=== PATIENT | male | born 1960 | race Caucasian/White ===

== ENCOUNTER → 2017-10-09 | Outpatient (CLI) | payer OTHER ==
--- NOTE | 2017-10-10 14:39 | US ---
EXAMINATION TYPE: US kidneys/renal and bladder DATE OF EXAM: 10/09/2017 COMPARISON: CT CLINICAL HISTORY: R94.4 abnormal results of function study of kidney. EXAM MEASUREMENTS: Right Kidney: 9.3 x 4.1 x 4.4 cm Left Kidney: 9.8 x 5.6 x 4.7 cm Right Kidney: No hydronephrosis or nephrolithiasis Left Kidney: No hydronephrosis or nephrolithiasis, inferior pole obscured by bowel gas Bladder: wnl Bilateral Jets seen: Yes There is no evidence for hydronephrosis at this point in time. No nephrolithiasis is seen. No kristin s are identified. The urinary bladder is anechoic. Bilateral ureteral jets are seen. Cortical medul terra differentiation is maintained. No cortical renal thinning. IMPRESSION: No evidence of hydronephrosis or nephrolithiasis although the left inferior pole is slightly limited by obscuring bowel gas. No sonographic evidence of medical renal disease.
== END | disposition home or self-care (01) ==
LOC: RADUSWWP 10-02 07:35
PROVIDERS: ATTEND Internal Medicine
DX: R94.4 Abnormal results of kidney function studies (principal)
CPT/HCPCS: 76770

== ENCOUNTER → 2021-02-22 | Outpatient (CLI) | payer OTHER ==
--- NOTE | 2021-02-22 17:48 | CT ---
EXAMINATION TYPE: CT iac wo con DATE OF EXAM: 02/22/2021 COMPARISON: CT brain 12/30/2012 HISTORY: Bilateral ear pain. Worse on the right. CT DLP: 150 mGycm Automated exposure control for dose reduction was used. Contrast: None Technique: Axial images 1 mm thick sections through the petrous ridges. Reconstructed images in the c oronal plane are obtained. FINDINGS: There is mild mucosal thickening within the left maxillary sinus. Sphenoid and ethmoid and portions o f the frontal sinuses within the field of view are clear. Left septal deviation is noted. Mastoid air cells are clear. Internal auditory canals appear normal without expansion or erosion. Semicircular canals are normal. Cochlea are normal. Foramen Lacerum extending through the middle ears bilaterally. Middle ears are ot herwise clear. Incus and malleus in normal orientation bilaterally. External auditory canals appear n ormal. Scutum are normal. Temporomandibular junctions appear within normal limits. Orbits appear normal. Lacrimal gland regions appear normal. Extraocular muscles are normal. Intraconal and extraconal fat is normal. IMPRESSION: 1. NORMAL BILATERAL INTERNAL AUDITORY CANALS.
== END | disposition home or self-care (01) ==
LOC: RADCTMAIN 13:48
PROVIDERS: ATTEND Otolaryngology
DX: H92.03 Otalgia, bilateral (principal)
CPT/HCPCS: 70480

== ENCOUNTER → 2021-07-25 | Outpatient (CLI) | payer OTHER ==
--- NOTE | 2021-07-25 13:02 | XR ---
EXAMINATION TYPE: XR elbow complete LT DATE OF EXAM: 07/25/2021 COMPARISON: 06/01/2013 HISTORY: Left elbow pain TECHNIQUE: 3 view left elbow FINDINGS: Radius aligns normally with the humerus. Anterior fat pad is normal. No elevation of the po sterior fat pad is evident which is normal. Joint spaces are preserved. Soft tissues are normal. No a cute fracture or dislocation is evident. IMPRESSION: 1. Normal three-view left elbow
--- NOTE | 2021-07-25 13:04 | XR ---
EXAMINATION TYPE: XR Hip Complete LT DATE OF EXAM: 07/25/2021 COMPARISON: None HISTORY: Pain TECHNIQUE: 2 view left hip FINDINGS: Femoral head articulates with the acetabulum. No acute fracture or dislocation is evident. Joint space appears preserved. IMPRESSION: 1. No acute osseous abnormality left hip
== END | disposition home or self-care (01) ==
LOC: RADXRMAIN 12:04
PROVIDERS: ATTEND Internal Medicine
DX: M25.522 Pain in left elbow (principal); M25.552 Pain in left hip
CPT/HCPCS: 73502

== ENCOUNTER 2021-07-29 10:35 | Emergency (ER) | payer OTHER ==
[2021-07-29 10:43] VITALS: BP 146/85; PULSE 68; RESP 20; TEMP 98.3
--- NOTE | 2021-07-29 10:59 | ED ---
Lower Extremity Injury HPI - General Chief Complaint: Extremity Injury, Lower Stated Complaint: L Hip Pain Time Seen by Provider: 07/29/21 10:44 Source: patient Limitations: no limitations - History of Present Illness Initial Comments: 61-year-old male presents to emergency Department with a chief complaint of left hip pain. Patient states he has developed pain in the left hip about 10 days ago. Patient reports feeling a sore sensation with radiation along the lateral aspect to the tibial region. He denies any paresthesias to the rest the leg. Reports going to his primary care physician and obtain an x-ray which showed no acute findings of the left hip. States he was on Flexeril with mild improvement in his symptoms. States he is also been taking ibuprofen which helped alleviate some of discomfort. Denies any weakness in the leg. Denies any back pain. Denies any saddle anesthesia, urinary retention with overflow or bowel incontinence. Denies any trauma to the left hip. - Related Data Home Medications Medication Instructions Recorded Confirmed ARIPiprazole [Abilify] 5 mg PO DAILY 07/07/15 10/02/15 HYDROcodone/APAP 7.5-325MG [[place] 1 each PO Q6HR PRN 07/07/15 10/02/15 7.5-325] ALPRAZolam [Xanax] 0.25 mg PO HS PRN 10/02/15 10/02/15 Cyclobenzaprine [Flexeril] 10 mg PO BID 10/02/15 10/02/15 Previous Rx's Medication Instructions Recorded HYDROmorphone [Dilaudid] 2 mg PO Q8H PRN #30 tab 10/02/15 Allergies Allergy/AdvReac Type Severity Reaction Status Date / Time No Known Allergies Allergy Verified 07/29/21 10:43 Review of Systems ROS Statement: Those systems with pertinent positive or pertinent negative responses have been documented in the HPI. ROS Other: All systems not noted in ROS Statement are negative. Past Medical History Past Medical History: No Reported History History of Any Multi-Drug Resistant Organisms: None Reported Past Surgical History: Appendectomy Past Psychological History: No Psychological Hx Reported Smoking Status: Never smoker Past Alcohol Use History: Occasional Past Drug Use History: None Reported General Exam Limitations: no limitations General appearance: alert, in no apparent distress Head exam: Present: atraumatic, normocephalic, normal inspection Eye exam: Present: normal appearance Pupils: Present: normal accommodation ENT exam: Present: normal exam, normal oropharynx, mucous membranes moist Neck exam: Present: normal inspection, full ROM. Absent: tenderness, lymphadenopathy Respiratory exam: Present: normal lung sounds bilaterally. Absent: respiratory distress Cardiovascular Exam: Present: regular rate, normal rhythm, normal heart sounds. Absent: systolic murmur Extremities exam: Present: normal inspection, full ROM, tenderness (Tenderness over the left hip and lateral aspect of the left thigh), normal capillary refill, other (Palpable DP and PT bilaterally). Absent: pedal edema, joint swelling, calf tenderness Back exam: Present: normal inspection, full ROM. Absent: tenderness Neurological exam: Present: alert, oriented X3 Psychiatric exam: Present: normal affect, normal mood Skin exam: Present: warm, dry, intact, normal color Course Vital Signs 07/29/21 10:41 Temperature 98.3 F Pulse Rate 68 Respiratory 20 Rate Blood Pressure 146/85 O2 Sat by Pulse 99 Oximetry Medical Decision Making - Medical Decision Making 61-year-old male presents to emergency Department with a chief complaint of left hip pain. Physical examination is unremarkable. I will start patient on a short course of steroids. I advised him to follow-up with diversity specialist. Return parameters were discussed with patient at some standing agreeable. Disposition Clinical Impression: Hip bursitis, left Disposition: HOME SELF-CARE Condition: Stable Instructions (If sedation given, give patient instructions): Hip Bursitis (ED) Additional Instructions: Please return to the Emergency Department if symptoms worsen or any other concerns. Is patient prescribed a controlled substance at d/c from ED?: No Referrals: Josiah Mckeon MD [Primary Care Provider] - 1-2 days Leonard Newman MD [Medical Doctor] - 1-2 days Time of Disposition: 10:59
== END 2021-07-29 11:20 | disposition home or self-care (01) ==
LOC: EC 10:35
DX: M70.72 Other bursitis of hip, left hip (principal)
CPT/HCPCS: 99283

== ENCOUNTER 2021-10-01 11:52 | Emergency (ER) | payer OTHER ==
[2021-10-01 12:20] VITALS: BP 145/83; PULSE 58; RESP 16; TEMP 98.9
[2021-10-01 12:44] LABS: Basophils % (A) 1 %; Eosinophils % (A) 1 %; HCT 43.6 % (39.0-53.0); HGB 15.2 gm/dL (13.0-17.5); Lymphocytes # (A) 0.6 k/uL (1.0-4.8); Lymphocytes % (A) 17 %; MCH 31.8 pg (25.0-35.0); MCHC 34.8 g/dL (31.0-37.0); MCV 91.5 fL (80.0-100.0); Mean Platelet Volume 7.5; Monocytes # (A) 0.2 k/uL (0-1.0); Monocytes % (A) 5 %; Neutrophils # (A) 2.8 k/uL (1.3-7.7); Neutrophils % (A) 76 %; RBC 4.77 m/uL (4.30-5.90); RDW 12.3 % (11.5-15.5); WBC 3.7 k/uL (3.8-10.6)
[2021-10-01 12:57] LABS: African American GFR (CKD) >90 (>60 ml/min/1.73 sqM); Anion Gap 7 mmol/L; Blood Urea Nitrogen 16 mg/dL (9-20); Calcium 8.5 mg/dL (8.4-10.2); Carbon Dioxide 24 mmol/L (22-30); Chloride 104 mmol/L (98-107); Glucose 118 mg/dL (74-99); Non-African American GFR(CKD) >90 (>60 ml/min/1.73 sqM); Potassium 4.1 mmol/L (3.5-5.1); Sodium 135 mmol/L (137-145)
--- NOTE | 2021-10-01 13:44 | XR ---
EXAMINATION TYPE: XR chest 2V DATE OF EXAM: 10/01/2021 COMPARISON: Chest x-ray July 07, 2015 HISTORY: Shortness of breath. Worsening cough and congestion. COVID positive. TECHNIQUE: Frontal and lateral views of the chest are obtained. FINDINGS: There are faint bilateral multifocal peripheral opacities with additional right basilar op acity. Cardiac silhouette size stable and within normal limits. Underlying scoliotic curvature redemo nstrated. IMPRESSION: Faint bilateral predominant peripheral lower lung opacities consistent with known covid- 19 infection.
[2021-10-01 14:50] LABS: Platelet Count 97 k/uL (150-450)
[2021-10-01] MEDS ORDERED: BAMLANIVIMAB (EUA) 700 MG, ETESEVIMAB (EUA) 1,400 MG in SODIUM CHLORIDE 0.9% 50 ML IVPB ONE (15:30)
[2021-10-01] MEDS ORDERED: SODIUM CHLORIDE 0.9% 50 ML IVPB ONE (16:00)
--- NOTE | 2021-10-01 16:21 | ED ---
URI HPI - General Chief Complaint: Upper Respiratory Infection Stated Complaint: covid+, chest pain Time Seen by Provider: 10/01/21 14:44 Source: patient, RN notes reviewed Mode of arrival: ambulatory Limitations: no limitations - History of Present Illness Initial Comments: Patient is a healthy 61-year-old male presenting to the emergency department wo rsening Covid symptoms. Patient states he started having symptoms on September 25, 6 days ago, he tested positive for 2 days ago. He's been reporting a worsening cough, congestion and some intermittent chest tightness when he coughs. He states he is still been able to eat his normal diet, consume lots of fluids. He denies any nausea or vomiting, no abdominal pain. He denies any chest pain today. He denies any shortness of breath. He denies any fevers or chills. He has no further complaints at this time. Upon arrival to the ER, his vital signs are stable. - Related Data Home Medications Medication Instructions Recorded Confirmed ARIPiprazole [Abilify] 5 mg PO DAILY 07/07/15 10/02/15 HYDROcodone/APAP 7.5-325MG [[place] 1 each PO Q6HR PRN 07/07/15 10/02/15 7.5-325] ALPRAZolam [Xanax] 0.25 mg PO HS PRN 10/02/15 10/02/15 Cyclobenzaprine [Flexeril] 10 mg PO BID 10/02/15 10/02/15 Previous Rx's Medication Instructions Recorded HYDROmorphone [Dilaudid] 2 mg PO Q8H PRN #30 tab 10/02/15 predniSONE 50 mg PO DAILY #5 tab 07/29/21 Albuterol Inhaler [Ventolin Hfa 1 puff INHALATION RT-QID PRN #8 gm 10/01/21 Inhaler] Dexamethasone [Decadron] 6 mg PO DAILY 5 Days #5 tablet 10/01/21 Allergies Allergy/AdvReac Type Severity Reaction Status Date / Time No Known Allergies Allergy Verified 07/29/21 10:43 Review of Systems ROS Statement: Those systems with pertinent positive or pertinent negative responses have been documented in the HPI. ROS Other: All systems not noted in ROS Statement are negative. Past Medical History Past Medical History: No Reported History History of Any Multi-Drug Resistant Organisms: None Reported Past Surgical History: Appendectomy Past Psychological History: No Psychological Hx Reported Smoking Status: Never smoker Past Alcohol Use History: Occasional Past Drug Use History: None Reported General Exam - General Exam Comments Initial Comments: GENERAL: Patient is well-developed and well-nourished. Patient is nontoxic and in no acute distress. HEAD: Atraumatic, normocephalic. EYES: Pupils equal round and reactive to light, extraocular movements intact, sclera anicteric, conjunctiva are normal. Eyelids were unremarkable. ENT: Moist mucous membranes. NECK: Normal range of motion, supple without lymphadenopathy or JVD. LUNGS: Unlabored respirations. Breath sounds clear to auscultation bilaterally and equal. No wheezes rales or rhonchi. HEART: Regular rate and rhythm without murmurs, rubs or gallops. ABDOMEN: Soft, nontender, normoactive bowel sounds. No guarding, no rebound. No masses appreciated. MUSCULOSKELETAL: Normal extremities with adequate strength and normal range of motion, no pitting or edema. No clubbing or cyanosis. NEUROLOGICAL: Patient is alert and oriented x 3. SKIN: Warm, Dry, normal turgor, no rashes or lesions noted. Limitations: no limitations Course Vital Signs 10/01/21 12:17 Temperature 98.9 F Pulse Rate 58 L Respiratory 16 Rate Blood Pressure 145/83 O2 Sat by Pulse 96 Oximetry Medical Decision Making - Medical Decision Making Patient is a healthy 61-year-old male referred worsening Covid symptoms. He tested of 2 days ago, symptoms began 6 days ago. Has been having cough, congestion. His vital signs are stable today. EEG revealed no acute process. His lab work is unremarkable including a low d-dimer and normal troponin. Chest x-ray shows faint of bilateral peripheral lower lung opacities consistent with covid infection. Patient's exam is unremarkable. He does qualify for monoclonal antibodies, he did agree to this today. Patient received these without any adverse side effects. We'll give him a short course of steroids, and inhaler. He is agreeable to this plan and care and he is stable for discharge. Case discussed with Dr. Ruvalcaba. - Lab Data Result diagrams: 10/01/21 12:27 10/01/21 12:27 Lab Results 10/01/21 10/01/21 10/01/21 Range/Units 12:27 12: 12:27 WBC 3.7 L (3.8-10.6) k/uL RBC 4.77 (4.30-5.90) m/uL Hgb 15.2 (13.0-17.5) gm/dL Hct 43.6 (39.0-53.0) % MCV 91.5 (80.0-100.0) fL MCH 31.8 (25.0-35.0) pg MCHC 34.8 (31.0-37.0) g/dL RDW 12.3 (11.5-15.5) % Plt Count 97 L (150-450) k/uL MPV 7.5 Neutrophils % 76 % Lymphocytes % 17 % Monocytes % 5 % Eosinophils % 1 % Basophils % 1 % Neutrophils # 2.8 (1.3-7.7) k/uL Lymphocytes # 0.6 L (1.0-4.8) k/uL Monocytes # 0.2 (0-1.0) k/uL Eosinophils # 0.0 (0-0.7) k/uL Basophils # 0.0 (0-0.2) k/uL Manual Slide Review Performed RBC Morphology Normal D-Dimer 0.36 (<0.60) mg/L FEU Sodium 135 L (137-145) mmol/L Potassium 4.1 (3.5-5.1) mmol/L Chloride 104 (98-107) mmol/L Carbon Dioxide 24 (22-30) mmol/L Anion Gap 7 mmol/L BUN 16 (9-20) mg/dL Creatinine 0.83 (0.66-1.25) mg/dL Est GFR (CKD-EPI)AfAm >90 (>60 ml/min/1.73 sqM) Est GFR (CKD-EPI)NonAf >90 (>60 ml/min/1.73 sqM) Glucose 118 H (74-99) mg/dL Calcium 8.5 (8.4-10.2) mg/dL Troponin I (0.000-0.034) ng/mL 10/01/21 Range/Units 12:27 WBC (3.8-10.6) k/uL RBC (4.30-5.90) m/uL Hgb (13.0-17.5) gm/dL Hct (39.0-53.0) % MCV (80.0-100.0) fL MCH (25.0-35.0) pg MCHC (31.0-37.0) g/dL RDW (11.5-15.5) % Plt Count (150-450) k/uL MPV Neutrophils % % Lymphocytes % % Monocytes % % Eosinophils % % Basophils % % Neutrophils # (1.3-7.7) k/uL Lymphocytes # (1.0-4.8) k/uL Monocytes # (0-1.0) k/uL Eosinophils # (0-0.7) k/uL Basophils # (0-0.2) k/uL Manual Slide Review RBC Morphology D-Dimer (<0.60) mg/L FEU Sodium (137-145) mmol/L Potassium (3.5-5.1) mmol/L Chloride (98-107) mmol/L Carbon Dioxide (22-30) mmol/L Anion Gap mmol/L BUN (9-20) mg/dL Creatinine (0.66-1.25) mg/dL Est GFR (CKD-EPI)AfAm (>60 ml/min/1.73 sqM) Est GFR (CKD-EPI)NonAf (>60 ml/min/1.73 sqM) Glucose (74-99) mg/dL Calcium (8.4-10.2) mg/dL Troponin I <0.012 (0.000-0.034) ng/mL - EKG Data EKG Comments: Sinus bradycardia, left posterior fascicular block, no signs of acute ST segment elevation. Ventricular rate 57, MA interval 162, QT 400. Disposition Clinical Impression: COVID-19 Disposition: HOME SELF-CARE Condition: Stable Instructions (If sedation given, give patient instructions): Coronavirus Disease 2019 (COVID-19) Additional Instructions: Please return to the Emergency Department if symptoms worsen or any other concerns. Inhaler as needed for any shortness of breath. Take steroids as prescribed. Follow up with your primary care as needed. Prescriptions: Dexamethasone [Decadron] 6 mg PO DAILY 5 Days #5 tablet Albuterol Inhaler [Ventolin Hfa Inhaler] 1 puff INHALATION RT-QID PRN #8 gm PRN Reason: Shortness Of Breath Is patient prescribed a controlled substance at d/c from ED?: No Referrals: Josiah Mckeon MD [Primary Care Provider] - 1-2 days Time of Disposition: 17:02
== END 2021-10-01 17:19 | disposition home or self-care (01) ==
LOC: EC 11:52
DX: U07.1 COVID-19 (principal)
CPT/HCPCS: 99285 ×2; 36415; 93005; 85379; 80048; 84484; 85025; 71046; M0243; J3490

== ENCOUNTER → 2022-08-29 | Outpatient (CLI) | payer OTHER ==
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
== END | disposition home or self-care (01) ==
LOC: RADMRIMAIN 18:50
PROVIDERS: ATTEND Internal Medicine
DX: S83.221D Peripheral tear of medial meniscus, current injury, right knee, subsequent encounter (principal); X58.XXXD Exposure to other specified factors, subsequent encounter

== ENCOUNTER → 2023-02-23 | Outpatient (CLI) | payer OTHER ==
--- NOTE | 2023-02-23 09:57 | P.PAINCN ---
History of Present Illness - Reason for Consult Consult date: 02/23/23 - History of Present Illness This is initial consultation visit for this 62 years old male with a chronic history of severe low back pain, more than 20 years ago, patient reported that the intensity of the pain increased over the years and currently is constant and increases with any activity interference with the quality of life, he denies any initiating event, he reported the pain is mostly in the low back area with oc casional radiation to the lower extremity, but most of the pain is in the low back area, he tried pain medication [place] and Tylenol and he tried lidocaine patches he did ice and heat therapy and has done physical therapy and chiropractors without any long-term benefit, denies any fever or night sweats she denies any motor or sensory deficit he denies any change in the bowel movement or urination Past Medical History Past Medical History: No Reported History History of Any Multi-Drug Resistant Organisms: None Reported Past Surgical History: Appendectomy Past Psychological History: No Psychological Hx Reported Smoking Status: Never smoker Past Alcohol Use History: Occasional Past Drug Use History: None Reported Medications and Allergies Home Medications Medication Instructions Recorded Confirmed Type ARIPiprazole [Abilify] 5 mg PO DAILY 07/07/15 10/02/15 History HYDROcodone/APAP 7.5-325MG [[place] 1 each PO Q6HR PRN 07/07/15 10/02/15 History 7.5-325] ALPRAZolam [Xanax] 0.25 mg PO HS PRN 10/02/15 10/02/15 History Cyclobenzaprine [Flexeril] 10 mg PO BID 10/02/15 10/02/15 History HYDROmorphone [Dilaudid] 2 mg PO Q8H PRN #30 tab 10/02/15 Rx predniSONE 50 mg PO DAILY #5 tab 07/29/21 Rx Albuterol Inhaler [Ventolin Hfa 1 puff INHALATION RT-QID PRN #8 gm 10/01/21 Rx Inhaler] dexAMETHasone [Decadron] 6 mg PO DAILY 5 Days #5 tablet 10/01/21 Rx Allergies Allergy/AdvReac Type Severity Reaction Status Date / Time No Known Allergies Allergy Verified 07/29/21 10:43 Physical Exam Vitals: Intake and Output 04/02/23 04/03/23 04/03/23 22:59 06:59 14:59 Other: Weight 69.4 kg Physical Examinations : -Constitutiona : Cooperative , not in acute distress . -HEENT : nech : supple , no Lymphadenopathy , normal thyroid size . : eyes : no ptosis , no icterus, no photophobia . - neurologic : Cranial nerve II to XII intact , no focal neurological deffecit . -psychatric : alert , oriented X 3 , appropriate affect , intact judgment and insight . -Lymphatic : no Lymphadenopathy . - musculoskeltal : Lumber spine moter stegnth lower extremities ,thigh and legs 5/5 Right side , 5/5 Left side deep tendon reflexes : normal Knee Jerk , normal ankle Jerk lumber facet Loading Test =positive Right , positive Left Range of motion of the lumbar spine Flexion 30 degrees, extension 10 degrees strait leg raising test = positive at 60 degree Fabere test= positive Right , and positive LT . tenderness over the Sacroiliac joint on the Right , and Left sides Assessment and Plan Plan: Assessment and plan= chronic low back pain secondary to lumbar degenerative disc disease , lumbar spondylosis with lumbar facet arthropathy . She had no diagnostic study done. We will order MRI of the lumbar spine to confirm the diagnosis. She'll follow up in the pain clinic in 2 weeks after the MRI report After we get the MRI results patient mostly needed diagnostic medial branch block lumbar area at L4 5 and L5-S1 I have spent 35 minutes on patient care today. The time was used to review the medical records including relevant urine studies and Prescription history (MAPs), review of the available imaging, evaluation and examination of the patient, coordination of care with the medical staff and if applicable referring physicians, as well as creation of the medical record. . , Time with Patient: Greater than 30 PQRS Measure Charge Sheet PQRS Narrative: Smoking Status Never smoker Home Medications: Ambulatory Orders ARIPiprazole [Abilify] 5 mg PO DAILY 07/07/15 HYDROcodone/APAP 7.5-325MG [[place] 7.5-325] 1 each PO Q6HR PRN 07/07/15 ALPRAZolam [Xanax] 0.25 mg PO HS PRN 10/02/15 Cyclobenzaprine [Flexeril] 10 mg PO BID 10/02/15 HYDROmorphone [Dilaudid] 2 mg PO Q8H PRN #30 tab 10/02/15 predniSONE 50 mg PO DAILY #5 tab 07/29/21 Albuterol Inhaler [Ventolin Hfa Inhaler] 1 puff INHALATION RT-QID PRN #8 gm 10/01/21 dexAMETHasone [Decadron] 6 mg PO DAILY 5 Days #5 tablet 10/01/21
[2023-02-23 10:13] VITALS: BP 146/86; PULSE 58; RESP 18; TEMP 98.4
== END ==
LOC: PNWHC3 09:15
PROVIDERS: ATTEND Specialist
DX: M51.36 Other intervertebral disc degeneration, lumbar region (principal); M47.816 Spondylosis without myelopathy or radiculopathy, lumbar region; G89.29 Other chronic pain; M25.552 Pain in left hip
CPT/HCPCS: 99211

== ENCOUNTER → 2023-02-23 | Outpatient (CLI) | payer OTHER ==
--- NOTE | 2023-02-23 12:07 | XR ---
EXAMINATION TYPE: XR lumbar spine 2 or 3V DATE OF EXAM: 02/23/2023 COMPARISON: None HISTORY: Spondylosis with radiculopathy lumbar region TECHNIQUE: 3 view lumbar spine FINDINGS: There is a scoliosis present with the convexity to the right centered at L2. There are 5 jose mbar-type vertebral bodies. The pedicles are intact. There is loss of disc height through the lumbar spine. This is greatest at L5-S1 with vacuum disc phenomenon. Posterior disc space narrowing is prese nt at L3-4. Diffuse disc space narrowing is at the remaining lumbar disc levels. Vertebral body heigh ts are preserved. No spondylolisthesis is evident. MRI can be performed as clinically indicated. IMPRESSION: 1. Degenerative disc changes throughout the lumbar spine. 2. Scoliosis
== END | disposition home or self-care (01) ==
LOC: RADXRMAIN 10:06
PROVIDERS: ATTEND Specialist
DX: M51.16 Intervertebral disc disorders with radiculopathy, lumbar region (principal); M47.26 Other spondylosis with radiculopathy, lumbar region; M41.86 Other forms of scoliosis, lumbar region
CPT/HCPCS: 72100

== ENCOUNTER → 2023-03-07 | Outpatient (CLI) | payer OTHER ==
--- NOTE | 2023-03-08 10:21 | MR ---
EXAMINATION TYPE: MR lumbar spine wo con DATE OF EXAM: 03/07/2023 11:54 AM COMPARISON: None CLINICAL INDICATION:Male, 62 years old with history of M47.816 SPONDYLOSIS W/O MYELOPATHY OR RADICULO PATH; Low back pain into sy[place] lower extremities TECHNIQUE: Multi planar, multi sequence imaging was performed utilizing: T1-weighted, T2-weighted, a nd turbo inversion recovery imaging of the lumbar spine. IV Contrast: None. FINDINGS: Alignment: The lumbar vertebral bodies have preserved heights and alignment. Cord: The conus medullaris and the distal spinal cord appear unremarkable with regards to their signa l intensity and morphology. Bones/Discs: Multilevel disc degeneration changes with osteophytes, Schmorl's nodes, disc space narro wing and facet joint arthropathy. Scattered bony edema along the adjoining endplates where there is c omplete loss of disc height. Disc desiccation is present multiple levels. Scattered Modic endplate ch anges. Lower thoracic spine does demonstrate disc bulging without significant spinal canal neural foraminal stenosis. T12-L1: No evidence of significant spinal canal stenosis or neural foraminal stenosis. L1-L2: Disc bulge and facet joint arthropathy result in and mild to moderate spinal canal and moderat e to severe bilateral neural foraminal stenosis. L2-L3: Disc bulge and facet joint arthropathy result in and mild to moderate spinal canal and moderat e right and moderate to severe left neural foraminal stenosis. L3-L4: Disc bulge with small central disc protrusion and facet joint arthropathy result in mild spina l canal and moderate right and moderate to severe left neural foraminal stenosis. L4-L5: Disc bulge with small central disc protrusion and facet joint arthropathy result in mild spina l canal and moderate to severe bilateral neural foraminal stenosis. L5-S1: The disc is rounded posterior morphology without significant spinal canal stenosis. Facet join t arthropathy with moderate to severe neural foraminal stenosis. Other findings: None. IMPRESSION: 1. Advanced disc degeneration changes worse throughout the lumbar spine there is at least mild-to-mo derate spinal canal stenosis at L1-L2 and L2-L3. 2. Disc degeneration changes and facet joint arthropathy result in severe neural foraminal stenosis at multiple levels as described above.
== END | disposition home or self-care (01) ==
LOC: RADMRIMAIN 11:19
PROVIDERS: ATTEND Specialist
DX: M47.816 Spondylosis without myelopathy or radiculopathy, lumbar region (principal); M99.73 Connective tissue and disc stenosis of intervertebral foramina of lumbar region; M51.36 Other intervertebral disc degeneration, lumbar region
CPT/HCPCS: 72148

== ENCOUNTER → 2023-03-19 | Outpatient (CLI) | payer OTHER ==
[2023-03-19 14:11] VITALS: BP 125/75; PULSE 60; RESP 18; TEMP 98.1
--- NOTE | 2023-03-19 14:16 | P.PAINPG ---
PQRS Measure Charge Sheet Comment: A 62 yr old male w at side with a history of severe and chronic LBP secondary to lumbar DDD and spondylosis with facet arthropathy without myelopathy presents today for evaluation of MRI results. Pain level is provoked at 8/10 in intensity, constant, localized in the lumbar spine, dull/ achy in character w shooting towards the LLE > R. Pain is provoked by standing/ walking for periods of 20 min or more. Pain is alleviated with chiropractic treatments semi monthly currently x 5 mo, heat, ice, topical, repositioning and rest. Patient is currently on [place], Tyl Patient denies any side effects of the medication(s), denies excessive drowsiness or sleepiness, denies suicidal ideation and reports that the current pain medication is helping to control the pain and improve activities of daily living. Patient denies any motor or sensory deficits. Patient denies any fever or night sweats, denies any change in the bowel movements or urination. Physical Examination: -Constitutional: Cooperative. Not in acute distress . - Neurologic: Cranial nerve II to XII intact. No focal neurological deficits. - Psychatric: Alert & oriented x 3. Matching mood & appropriate affect. Judgment and insight intact. - Musculoskeletal: Cervical spine: Muscle bulk/ tone/ strength in the bilateral upper extremities normal Vertebral body tenderness to palpation over Spurling test positive Distraction test positive Facet loading test positive TTP Thoracic spine Muscle bulk / tone/ strength in the bilateral paraspinal muscles normal Vertebral body tender to palpation over Facet loading test positive TTP Lumbar spine: Motor bulk/ tone/ strength lower extremities , thigh and legs : 5/5 Deep tendon reflexes : Normal Knee Jerk. Normal Ankle Jerk . Vertebral body tenderness to palpation over Lumbar Facet Loading Test positive Straight Leg Raise: positive at 30 degrees right side/ left side Gaenslen's Test positive Sacral spine : Severe tenderness over the Sacroiliac joint: right side / left side Range of motion: Flexion of the lumbar spine <60 degrees Range of motion: Extension of the lumbar spine <20 degrees Gaenslen's Test positive right side / left side Ernesto test: positive right side / left side Thigh Thrust Test positive right side / left side Sacral Thrust Test positive right side / left side Imaging: MRI non contrast lumbar spine from 03/07/23 reviewed Assessment and plan: Chronic LBP secondary to lumbar DDD, spondylosis with facet arthropathy without myelopathy Recommendation of PT x 6 wks re: M51.36. May follow up as needed. All questions answered. I have spent less than 30 minutes on patient care today. Dr Paez was available by phone for the evaluation of this patient. The time was used to review the medical records including relevant urine studies and Prescription history (MAPs), review of the available imaging, evaluation and examination of the patient, coordination of care with the medical staff and if applicable referring physicians, as well as creation of the medical record PQRS Narrative: Smoking Status Never smoker Hx Alcohol Use (MH) No Home Medications: Ambulatory Orders ARIPiprazole [Abilify] 5 mg PO DAILY 07/07/15 HYDROcodone/APAP 7.5-325MG [[place] 7.5-325] 1 each PO Q6HR PRN 07/07/15 ALPRAZolam [Xanax] 0.25 mg PO HS PRN 10/02/15 Cyclobenzaprine [Flexeril] 10 mg PO BID 10/02/15 HYDROmorphone [Dilaudid] 2 mg PO Q8H PRN #30 tab 10/02/15 predniSONE 50 mg PO DAILY #5 tab 07/29/21 Albuterol Inhaler [Ventolin Hfa Inhaler] 1 puff INHALATION RT-QID PRN #8 gm 10/01/21 dexAMETHasone [Decadron] 6 mg PO DAILY 5 Days #5 tablet 10/01/21 Controlled Substance Measures - Controlled Substance Measures Is patient prescribed a controlled substance at discharge?: No
== END ==
LOC: PNWHC3 12:28
PROVIDERS: ATTEND Specialist
DX: M51.36 Other intervertebral disc degeneration, lumbar region (principal); M47.816 Spondylosis without myelopathy or radiculopathy, lumbar region; G89.29 Other chronic pain
CPT/HCPCS: 99211

== ENCOUNTER 2023-04-28 15:07 | Emergency (ER) | payer OTHER ==
[2023-04-28 15:37] VITALS: BP 153/82; PULSE 65; RESP 20; TEMP 97.9
--- NOTE | 2023-04-28 16:38 | ED ---
General Adult HPI - General Chief complaint: Recheck/Abnormal Lab/Rx Stated complaint: arterial blockage/sent by pcp Time Seen by Provider: 04/28/23 16:00 Source: patient Mode of arrival: ambulatory Limitations: no limitations - History of Present Illness Initial comments: This 62-year-old male presents with with the complaint of some blockage of his carotid artery. He states that he had a syncopal episode approximately one month ago. He was following up with his primary care and they ordered a carotid Doppler study. This apparently came back showing significant stenosis and his primary care was contacted and they told him to come to the emergency department. The issue and states that he is asymptomatic at this time. He has not had any additional syncopal episodes since the previous one about one month ago. He has had several syncopal episodes in the past with unknown cause. He is not having any extremity weakness or numbness or any other signs of stroke. He states that he feels absolutely normal at this time. No other complaints or modifying factors. - Related Data Home Medications Medication Instructions Recorded Confirmed ARIPiprazole [Abilify] 5 mg PO DAILY 07/07/15 03/19/23 HYDROcodone/APAP 7.5-325MG [[place] 1 each PO Q6HR PRN 07/07/15 03/19/23 7.5-325] ALPRAZolam [Xanax] 0.25 mg PO HS PRN 10/02/15 03/19/23 Cyclobenzaprine [Flexeril] 10 mg PO BID 10/02/15 03/19/23 Previous Rx's Medication Instructions Recorded HYDROmorphone [Dilaudid] 2 mg PO Q8H PRN #30 tab 10/02/15 predniSONE 50 mg PO DAILY #5 tab 07/29/21 Albuterol Inhaler [Ventolin Hfa 1 puff INHALATION RT-QID PRN #8 gm 10/01/21 Inhaler] dexAMETHasone [Decadron] 6 mg PO DAILY 5 Days #5 tablet 10/01/21 Clopidogrel [Plavix] 75 mg PO DAILY #30 tablet 04/28/23 Allergies Allergy/AdvReac Type Severity Reaction Status Date / Time No Known Allergies Allergy Verified 04/28/23 15:37 Review of Systems ROS Statement: Those systems with pertinent positive or pertinent negative responses have been documented in the HPI. ROS Other: All systems not noted in ROS Statement are negative. Past Medical History Past Medical History: No Reported History History of Any Multi-Drug Resistant Organisms: None Reported Past Surgical History: Appendectomy Past Psychological History: No Psychological Hx Reported Smoking Status: Never smoker Past Alcohol Use History: Occasional General Exam - General Exam Comments Initial Comments: GENERAL: The patient is well nourished and well hydrated. VITAL SIGNS: Heart rate, blood pressure, respiratory rate reviewed as recorded in nurse's notes. EYES: Pupils are round and reactive. Extraocular movements are intact. No conjunctival / lid redness or swelling. ENT: No external evidence of injury, swelling, or ecchymosis. Airway is patent. Throat is clear. NECK: Nontender. No swelling or evidence of injury. No subcutaneous emphysema. Trachea is midline. No thyroid mass. HEART: Regular rate and rhythm. Good peripheral pulses. LUNGS/CHEST: Breath sounds clear and equal bilaterally. No rales, rhonchi, or wheezes. No ecchymosis, subcutaneous emphysema, or tenderness. ABDOMEN: Abdomen soft without tenderness. No palpable masses or organomegaly. No peritoneal signs. No abdominal wall swelling or ecchymosis. EXTREMITIES: No extremity tenderness. Normal muscle tone and function. No thorac olumbar tenderness. NEUROLOGIC: Sensation is grossly intact. Cranial nerve exam reveals face is symmetrical, tongue is midline, speech is clear. SKIN: No abrasions or ecchymosis is noted. No induration or masses noted. PSYCHIATRIC: Alert and oriented. Appropriate behavior and judgment. Limitations: no limitations Course Vital Signs 04/28/23 15:33 Temperature 97.9 F Pulse Rate 65 Respiratory 20 Rate Blood Pressure 153/82 O2 Sat by Pulse 99 Oximetry Medical Decision Making - Medical Decision Making the patient was seen and examined. The carotid ultrasound was reviewed from earlier today and this does show some significant carotid stenosis of the internal carotid artery on the left side. Case is discussed with Dr. Mcguire from vascular surgery and he recommends that patient be started on daily aspirin as well as Plavix. He recommends the patient have a CT angiogram of the head and neck that this is Zoltan is scheduled for this next Thursday. He would like the patient to follow-up with his office this next week and will contact his office to call the patient to schedule an appointment. The patient does not appear to require admission to the hospital at this time. Close follow-up with primary care and vascular surgery recommended. Return parameters are discussed. Was pt. sent in by a medical professional or institution (, [facility], COMBAT SYSTEMS OFFICER, urgent care, hospital, or fdc...) When possible be specific @ -[No] Did you speak to anyone other than the patient for history (EMS, parent, family, police, friend...)? What history was obtained from this source @ -[No] Did you review nursing and triage notes (agree or disagree)? Why? @ -[I reviewed and agree with nursing and triage notes] Were old charts reviewed (outside hosp., previous admission, EMS record, old EKG, old radiological studies, urgent care reports/EKG's, fdc records)? Report findings @ -[No old charts were reviewed] Differential Diagnosis (chest pain, altered mental status, abdominal pain women, abdominal pain men, vaginal bleeding, weakness, fever, dyspnea, syncope, headache, dizziness, GI bleed, back pain, seizure, CVA, palpatations, mental health, musculoskeletal)? @ -[not applicable] EKG interpreted by me (3pts min.). @ -[As above] X-rays interpreted by me (1pt min.). @ -[None done] CT interpreted by me (1pt min.). @ -[None done] U/S interpreted by me (1pt. min.). @ -carotid ultrasound was interpreted by radiologist. What testing was considered but not performed or refused? (CT, X-rays, U/S, labs)? Why? @ -[None] What meds were considered but not given or refused? Why? @ -[None] Did you discuss the management of the patient with other professionals (professionals i.e. , [facility], COMBAT SYSTEMS OFFICER, lab, RT, psych nurse, social media editor, stereotyper, teacher, customs patrol officer, case filler)? Give summary @ -[No] Was smoking cessation discussed for >3mins.? @ -[No] Was critical care preformed (if so, how long)? @ -[No] Were there social determinants of health that impacted care today? How? (Homelessness, low income, unemployed, alcoholism, drug addiction, transportation, low edu. Level, literacy, decrease access to med. care, nursing home, rehab)? @ -[No] Was there de-escalation of care discussed even if they declined (Discuss DNR or withdrawal of care, Hospice)? DNR status @ -[No] What co-morbidities impacted this encounter? (DM, HTN, Smoking, COPD, CAD, Cancer, CVA, ARF, Chemo, Hep., AIDS, mental health diagnosis, sleep apnea, morbid obesity)? @ -syncope, chronic pain Was patient admitted / discharged? Hospital course, mention meds given and route, prescriptions, significant lab abnormalities, going to OR and other pertinent info. @ -discharge Undiagnosed new problem with uncertain prognosis? @ -[No] Drug Therapy requiring intensive monitoring for toxicity (Heparin, Nitro, Insulin, Cardizem)? @ -[No] Were any procedures done? @ -[No] Diagnosis/symptom? @ -syncope, carotid stenosis Acute, or Chronic, or Acute on Chronic? @ -acute Uncomplicated (without systemic symptoms) or Complicated (systemic symptoms)? @ -uncomplicated Side effects of treatment? @ -[No] Exacerbation, Progression, or Severe Exacerbation? @ -[No] Poses a threat to life or bodily function? How? (Chest pain, [place], NH, pneumonia, PE, COPD, DKA, ARF, appy, cholecystitis, CVA, Diverticulitis, Homicidal, Suicidal, threat to staff... and all critical care pts) @ -[No] Disposition Clinical Impression: Carotid stenosis Disposition: HOME SELF-CARE Condition: Good Instructions (If sedation given, give patient instructions): Carotid Artery Disease (DC) Additional Instructions: Dr. Mcguire's office is going to call you to schedule an appointment and would like to see you next week. He does recommend getting the CT angiogram of your head and neck as soon as possible as well. Please also take an aspirin 81 mg daily. Prescriptions: Clopidogrel [Plavix] 75 mg PO DAILY #30 tablet Is patient prescribed a controlled substance at d/c from ED?: No Referrals: Josiah Mckeon MD [Primary Care Provider] - 1-2 days Nikko Mcguire DO [STAFF PHYSICIAN] - As Soon As Possible Time of Disposition: 16:38
== END 2023-04-28 16:45 | disposition home or self-care (01) ==
LOC: EC 15:07
DX: I65.22 Occlusion and stenosis of left carotid artery (principal)
CPT/HCPCS: 99283

== ENCOUNTER → 2023-04-28 | Outpatient (CLI) | payer OTHER ==
--- NOTE | 2023-04-28 12:42 | US ---
EXAMINATION TYPE: US carotid duplex BILAT DATE OF EXAM: 04/28/2023 COMPARISON: NONE CLINICAL INDICATION: Male, 62 years old with history of R55 SYNCOPE; TECHNIQUE: Carotid duplex ultrasound examination. Indirect Doppler criteria was utilized. FINDINGS: EXAM MEASUREMENTS: RIGHT: Peak Systolic Velocity (PSV) cm/sec ----- Right CCA: 73.8 ----- Right ICA: 93.0 ----- Right ECA: 88.6 ICA/CCA ratio: 1.3 RIGHT: End Diastole cm/sec ----- Right CCA: 18.8 ----- Right ICA: 40.2 ----- Right ECA: 9.5 LEFT: Peak Systolic Velocity (PSV) cm/sec ----- Left CCA: 73.2 ----- Left ICA: 472.0 ----- Left ECA: 99.1 ICA/CCA ratio: 6.4 LEFT: End Diastole cm/sec ----- Left CCA: 12.8 ----- Left ICA: 173.3 ----- Left ECA: 15.0 VERTEBRALS (direction of flow): Right Vertebral: Antegrade Left Vertebral: Antegrade Rhythm: Normal PATENT CHEMIST NOTES: Severe stenosis to near occlusion noted at left bulb into ICA. IMPRESSION: Severe, high-grade stenosis proximal left ICA. Recommend vascular surgery evaluation. Criteria for Assigning % of Stenosis / Diameter reduction (Estimation based on the indirect measurements of the internal carotid artery velocities (ICA PSV). 1. Normal (no stenosis)=ICA PSV < 125 cm/s: ratio < 2.0: ICA EDV<40 cm/s. 2. Less than 50% stenosis=ICA PSV < 125 cm/s: ratio < 2.0: ICA EDV<40 cm/s. 3. 50 to 69% stenosis=ICA PSV of 125 to 230 cm/s: ration 2.0 ? 4.0: ICA EDV 40-100 cm/s. 4. Greater than 70% stenosis to near occlusion= ICA PSV > 230 cm/s: ratio > 4.0: ICA EDV > 100 cm/s. 5. Near occlusion= ICA PSV velocities may be low or undetectable: variable ratio and ICA EDV. 6. Total occlusion=unable to detect flow.
--- NOTE | 2023-04-29 09:51 | CA ---
Transthoracic Echo Report Name: Rhys Manning Age: 62 Gender: M : 1960 Exam Date: 04/28/2023 11:30 Exam Location: [facility] Ht (in): 66 Wt (lb): 152 Ordering Physician: Josiah Mckeon MD Attending/Referring Phys: Office Equipment Technician Sherrno Ruiz RDCS Procedure CPT: Indications: R55 SYNCOPE AND COLLAPSE Cardiac Hx: Technical Quality: Good Contrast 1: Total Dose (mL): Contrast 2: Total Dose (mL): MEASUREMENTS (Male / Female) Normal Values 2D ECHO LV Diastolic Diameter PLAX 4.3 cm 4.2 - 5.9 / 3.9 - 5.3 cm LV Systolic Diameter PLAX 3.3 cm IVS Diastolic Thickness 1.1 cm 0.6 - 1.0 / 0.6 - 0.9 cm LVPW Diastolic Thickness 1.1 cm 0.6 - 1.0 / 0.6 - 0.9 cm LV Relative Wall Thickness 0.5 RV Internal Dim ED PLAX 2.7 cm LA Systolic Diameter LX 3.4 cm 3.0 - 4.0 / 2.7 - 3.8 cm LV Diastolic Volume MOD BP 79.9 cm??? 67 - 155 / 56 - 104 cm??? LV Systolic Volume MOD BP 33.6 cm??? 22 - 58 / 19 - 49 cm??? LV Ejection Fraction MOD BP 57.9 % >= 55 % LV Diastolic Volume MOD 4C 84.8 cm??? LV Systolic Volume MOD 4C 32.8 cm??? LV Ejection Fraction MOD 4C 61.3 % LV Diastolic Length 4C 8.1 cm LV Systolic Length 4C 6.1 cm LV Diastolic Volume MOD 2C 72.5 cm??? LV Systolic Volume MOD 2C 30.9 cm??? LV Ejection Fraction MOD 2C 57.4 % LV Diastolic Length 2C 7.8 cm LV Systolic Length 2C 6.9 cm LA Volume 57.7 cm??? 18 - 58 / 22 - 52 cm??? M-MODE Aortic Root Diameter MM 3.5 cm MV E Point Septal Separation 0.4 cm AV Cusp Separation MM 2.1 cm DOPPLER AV Peak Velocity 115.8 cm/s AV Peak Gradient 5.4 mmHg MV Area PHT 3.5 cm??? Mitral E Point Velocity 75.9 cm/s Mitral A Point Velocity 55.2 cm/s Mitral E to A Ratio 1.4 MV Deceleration Time 217.5 ms MV E' Velocity 12.6 cm/s Mitral E to MV E' Ratio 6.0 FINDINGS Left Ventricle Left ventricular ejection fraction is estimated at 55-60 %. Left ventricular cavity size normal. Mildly increased septal wall thickness. Normal left ventricular wall motion. Right Ventricle Normal right ventricular size and function. Unable to estimate the right ventricular systolic pressure. Right Atrium Normal right atrial size. Left Atrium Normal left atrial size. Mitral Valve Structurally normal mitral valve. No mitral stenosis, regurgitation or prolapse. Aortic Valve Trileaflet aortic valve. No aortic valve stenosis or regurgitation. Tricuspid Valve Structurally normal tricuspid valve. Pulmonic Valve Structurally normal pulmonic valve. No pulmonic regurgitation. Pericardium Normal pericardium. No pericardial effusion. Aorta Normal size aortic root and proximal ascending aorta. CONCLUSIONS Normal right ventricular dimension and systolic function Previewed by: Dr. Rommel Cowan MD (Electronically Signed) Final Date: 29 April 2023 09:50
== END | disposition home or self-care (01) ==
LOC: RADECHMAIN 11:22
PROVIDERS: ATTEND Internal Medicine
DX: I65.22 Occlusion and stenosis of left carotid artery (principal); R55 Syncope and collapse
CPT/HCPCS: 93270; 93306; 93880

== ENCOUNTER → 2023-05-12 | Outpatient (CLI) | payer OTHER ==
--- NOTE | 2023-05-12 10:20 | CT ---
EXAMINATION TYPE: CT angio neck CT DLP: 282 mGycm, Automated exposure control for dose reduction was used. DATE OF EXAM: 05/12/2023 9:48 AM COMPARISON: 04/28/2023. CLINICAL INDICATION:Male, 62 years old with history of I65.29 OCCLUSION AND STENOSIS OF UNSPECIFIED C AROT, Occlusion and stenosis of LT carotid TECHNIQUE: Axially acquired helical CT angiogram of the neck was obtained with contrast. Axial images are supplemented with 3D reconstructions which were post-processed at an independent workstation. NA SCET criteria used. Contrast used:65 mL of Isovue 370 with IV Contrast, Oral contrast used: None. FINDINGS: CTA NECK: Right Carotid System: The common carotid and external carotid arteries are patent. There is approximately 25% stenosis at t he carotid bifurcation secondary to calcified/noncalcified plaquing. The rest of the internal carotid artery is patent. Left Carotid System: The common carotid and external carotid arteries are patent. There is approximately 90 % stenosis at the proximal internal carotid artery hand is extending from the carotid bifurcation secondary to nonc alcified plaquing. The rest of the internal carotid artery is patent. Left vertebral artery is dominant there is a diminutive right vertebral artery which has a very small caliber. There is a three-vessel aortic arch. The origins of the great vessels are patent. No evidence of hemo dynamically significant stenosis. Upper thorax: IMPRESSION: 1. Extremely diminutive right vertebral artery with dominant left vertebral artery. 2. Proximal left internal carotid artery stenosis up to 90% 3. Less than 25% stenosis of the right carotid bifurcation. 4. No evidence of dissection of the cervical internal carotid arteries or vertebral arteries.
== END | disposition home or self-care (01) ==
LOC: RADCTMAIN 08:46
PROVIDERS: ATTEND Surgery
DX: I65.23 Occlusion and stenosis of bilateral carotid arteries (principal)
CPT/HCPCS: 70498; Q9967

== ENCOUNTER → 2023-06-29 | Outpatient (CLI) | payer OTHER ==
--- NOTE | 2023-06-29 11:22 | XR ---
EXAMINATION TYPE: XR lumbar spine 2 or 3V DATE OF EXAM: 06/29/2023 9:27 AM INDICATION: Patient age:Male; 63 years old; Reason for study: G89.29 M54.50; COMPARISON: None TECHNIQUE: Frontal, lateral and coned in L5-S1 lateral views of the spine. FINDINGS: No evidence of any acute osseous pathology. No evidence of loss of vertebral body height i s seen. There is dextroscoliosis apex L2-L3 alignment of the lumbar vertebral bodies. Mild scattered disc space narrowing. Multilevel marginal osteophyte formation throughout the visualized spine. There is facet joint arthropathy throughout the spine. Scattered at least mild neural foraminal stenosis. Atherosclerosis of the arterial vasculature. No foraminal stenosis worse at L5-S1 with at least mild to moderate. IMPRESSION: 1. No acute fracture. 2. Mild multilevel disc degeneration.
--- NOTE | 2023-06-29 11:25 | XR ---
EXAMINATION TYPE: XR Hip Complete LT DATE OF EXAM: 06/29/2023 9:27 AM INDICATION: Patient age:Male; 63 years old; Reason for study: M25.552; COMPARISON: None. TECHNIQUE: The left hip was examined in the frontal and lateral projections FINDINGS: No evidence for acute process, joint dislocation or significant soft tissue swelling. Osteo phyte formation of the superior acetabulum of the hips and femoral head. IMPRESSION: 1. No evidence for acute process. 2. Mild left hip osteoarthrosis.
== END | disposition home or self-care (01) ==
LOC: RADXRMAIN 09:04
PROVIDERS: ATTEND Internal Medicine
DX: M51.36 Other intervertebral disc degeneration, lumbar region (principal); M16.12 Unilateral primary osteoarthritis, left hip; G89.29 Other chronic pain
CPT/HCPCS: 72100; 73502

== ENCOUNTER → 2023-07-20 | Outpatient (CLI) | payer OTHER ==
--- NOTE | 2023-07-20 11:38 | US ---
EXAMINATION TYPE: US arterial LE single level DATE OF EXAM: 07/20/2023 10:51 AM CLINICAL INDICATION: Male, 63 years old with history of I73.9 PERIPHERAL VASCULAR DISEASE; Left leg p ain since February, numb and tingling History of: Smoker: n Hypertension: y Diabetic: n Hyperlipidemia: n TIA/CVA: n Previous Vascular Surgery: left endarterectomy CAD: n NH: n Vascular Ulcers: n Claudication: n Gangrene: n Doppler Waveforms: Right: Multiphasic Left: Multiphasic Right Brachial Pressure: 164 Left Brachial Pressure: 167 Ankle-Brachial Indices: Right: 1.1 Left: 1.1 Toe Brachial Indices: Right: 0.6 Left: 0.7 IMPRESSION: Ankle-brachial indices within normal limits bilaterally.
== END | disposition home or self-care (01) ==
LOC: RADUSWWP 10:09
PROVIDERS: ATTEND Internal Medicine
DX: I73.9 Peripheral vascular disease, unspecified (principal); M79.605 Pain in left leg; R20.0 Anesthesia of skin
CPT/HCPCS: 93922

== ENCOUNTER → 2023-11-06 | Outpatient (CLI) | payer OTHER ==
--- NOTE | 2023-11-06 15:43 | XR ---
EXAMINATION TYPE: XR hand complete RT DATE OF EXAM: 11/06/2023 3:31 PM CLINICAL INDICATION:Male, 63 years old with history of S69.91XA; COMPARISON: None TECHNIQUE: XR hand complete RT Frontal, lateral and oblique views were obtained. FINDINGS: Normal alignment of the visualized joints. No acute osseous pathology is identified. No e vidence of soft tissue swelling. Normal injury to the distal interphalangeal joint of the second digi t with osseous calcified body present IMPRESSION: No acute osseous pathology.
== END | disposition home or self-care (01) ==
LOC: RADXRMAIN 15:08
PROVIDERS: ATTEND Internal Medicine
DX: S69.91XA Unspecified injury of right wrist, hand and finger(s), initial encounter (principal); X58.XXXA Exposure to other specified factors, initial encounter

== ENCOUNTER → 2024-04-04 | Outpatient (CLI) | payer OTHER ==
--- NOTE | 2024-04-04 11:03 | XR ---
EXAMINATION TYPE: XR chest 2V DATE OF EXAM: 04/04/2024 COMPARISON: 10/01/2021 HISTORY: 63-year-old male R05.1, acute cough TECHNIQUE: Frontal and lateral views FINDINGS: Heart normal size. Aorta and pulmonary vasculature are within normal limits. No consolidation or pleu ral effusion. IMPRESSION: No acute cardiopulmonary process.
== END | disposition home or self-care (01) ==
LOC: RADXRMAIN 09:25
PROVIDERS: ATTEND Internal Medicine
DX: R05.1 Acute cough (principal)
CPT/HCPCS: 71046

== ENCOUNTER → 2024-04-25 | Outpatient (CLI) | payer OTHER ==
[2024-04-25 15:03] LABS: African American GFR (CKD) >90 (>60 ml/min/1.73 sqM); Blood Urea Nitrogen 27 mg/dL (9-20); Non-African American GFR(CKD) >90 (>60 ml/min/1.73 sqM)
--- NOTE | 2024-04-27 14:37 | CT ---
EXAMINATION TYPE: CT chest w con CT DLP: 232 mGycm, Automated exposure control for dose reduction was used. DATE OF EXAM: 04/25/2024 3:43 PM COMPARISON: Chest radiographs 04/04/2024. CLINICAL INDICATION:Male, 63 years old with history of R05.3 CHRONIC COUGH; PHH, cough and shortness of breath TECHNIQUE: Multiple axial images were obtained through the chest. Sagittal and coronal reformats were created for review. Contrast used:100 mL of Isovue 300 with IV Contrast (None if empty) Oral contrast used: (None if empty) FINDINGS: LUNGS/ PLEURA: The lung parenchyma appears unremarkable. AIRWAY: Patent and unremarkable. HEART: Size within normal limits. MEDIASTINUM: No gross evidence of adenopathy. VASCULATURE: No aortic aneurysm. MUSCULOSKELETAL: No acute osseous abnormalities SOFT TISSUES/LYMPH NODES: Unremarkable. LOWER NECK: No significant findings. UPPER ABDOMEN: No significant findings. IMPRESSION: No pathologic findings are appreciated that would account for the patient's symptoms. Negative exam.
== END | disposition home or self-care (01) ==
LOC: RADCTMAIN 14:23
PROVIDERS: ATTEND Internal Medicine
DX: R05.3 Chronic cough (principal); R06.02 Shortness of breath
CPT/HCPCS: 82565; 84520; 71260; 36415; Q9967

== ENCOUNTER → 2024-06-20 | Outpatient (CLI) | payer OTHER ==
--- NOTE | 2024-06-20 18:43 | CA ---
Exercise Stress Test Report Name: Rhys Manning Exam Date: 06/20/2024 11:44 Exam Location: [facility] Stress Ht (in): 66 Wt (lb): 150 BSA: 1.77 Ordering Phys: Josiah Mckeon MD Referring Phys: Josiah Mckeon MD Technologist: ANGI Age: 64 Gender: M : 1960 Procedure CPT: Indications: R06.09 Other forms of dyspnea ICD-10 Codes: Patient History: DEANNA, hypertension and palpitations. Medications: Meds past 24 hrs: Pretest Chest Pain: STRESS TEST [place] Protocol Exercise Duration (min:sec): 12:[address] Depressions (mm): Angina Score: Velasquez Score: Resting HR (bpm): 55 Peak HR (bpm): 126 Resting BP (mmHg): 152 / 94 Peak BP (mmHg): 212 / 64 MPHR: 154 Target HR: 131 % MPHR: 82 METS: 13.6 Total Dose: Peak Dose: Atropine: Double Product: 90932 BP Response: Stress Termination: Reached target heart rate Stress Symptoms: No chest pain or symptoms Stress Summary: ECG ANALYSIS Resting ECG: Stress ECG: CONCLUSIONS Diagnosis dyslipidemia, hypertension, shortness of breath and palpitations Impression Good exercise capacity on a Cruzito protocol of greater than 12 minutes Normal heart rate response Hypertensive response to exercise No EKG evidence for ischemia Dr. Jass Trent MD (Electronically Signed) Final Date: 20 June 2024 18:42
--- NOTE | 2024-06-21 07:37 | NM ---
EXAMINATION TYPE: NM stress cardiolite complete DATE OF EXAM: 06/20/2024 COMPARISON: NONE CLINICAL INDICATION: Male, 64 years old with history of R06.09 OTHER FORMS OF DYSPNEA; TECHNIQUE: After the intravenous administration of 10.6 mCi Tc 99m Sestamibi - Rest images obtained 45 minutes post injection. The patient exercised using a TORIBIO protocol and 1 minute prior to peak exercise was injected with 24.0 mCi Tc 99m Sestamibi - Stress images obtained 45 minutes post injecti on. FINDINGS: Targeted heart rate was achieved during performance of the study. Review of stress and rest SPECT reyes ges demonstrates no distinct perfusion abnormality. Gated analysis shows normal wall motion with an estimated left ventricular ejection fraction of 58 %. IMPRESSION: No scintigraphic evidence for reversible ischemia
== END | disposition home or self-care (01) ==
LOC: RADNMMAIN 08:18
PROVIDERS: ATTEND Internal Medicine
DX: R06.09 Other forms of dyspnea (principal); I10 Essential (primary) hypertension; E78.5 Hyperlipidemia, unspecified; R00.2 Palpitations; R06.02 Shortness of breath
CPT/HCPCS: 93017; 78452; A9500

== ENCOUNTER 2025-01-24 09:40 | Emergency (ER) | payer OTHER ==
[2025-01-24] MEDS: SODIUM CHLORIDE 0.9% 500 ML 500 ML IV STA (11:14)
[2025-01-24 11:25] LABS: Basophils % (A) 0 %; Eosinophils # (A) 0.2 k/uL (0-0.7); Eosinophils % (A) 3 %; HCT 39.6 % (39.0-53.0); HGB 12.5 gm/dL (13.0-17.5); Lymphocytes # (A) 1.3 k/uL (1.0-4.8); Lymphocytes % (A) 22 %; MCH 29.8 pg (25.0-35.0); MCHC 31.7 g/dL (31.0-37.0); Mean Platelet Volume 6.8; Monocytes # (A) 0.5 k/uL (0-1.0); Monocytes % (A) 8 %; Neutrophils # (A) 3.7 k/uL (1.3-7.7); Neutrophils % (A) 64 %; Platelet Count 171 k/uL (150-450); RBC 4.21 m/uL (4.30-5.90); RDW 13.1 % (11.5-15.5); WBC 5.8 k/uL (3.8-10.6)
[2025-01-24 11:35] LABS: ALT 22 U/L (4-49); AST 23 U/L (17-59); African American GFR (CKD) >90 (>60 ml/min/1.73 sqM); Albumin 3.4 g/dL (3.5-5.0); Alkaline Phosphatase 52 U/L (38-126); Anion Gap 3 mmol/L; Blood Urea Nitrogen 20 mg/dL (9-20); Calcium 8.4 mg/dL (8.4-10.2); Carbon Dioxide 26 mmol/L (22-30); Chloride 107 mmol/L (98-107); Glucose 87 mg/dL (74-99); Non-African American GFR(CKD) >90 (>60 ml/min/1.73 sqM); Sodium 136 mmol/L (137-145); Total Bilirubin 1.1 mg/dL (0.2-1.3); Total Protein 5.4 g/dL (6.3-8.2)
--- NOTE | 2025-01-24 12:15 | ED ---
General Adult HPI - General Chief complaint: Syncope Stated complaint: syncope Time Seen by Provider: 01/24/25 09:50 Source: patient, EMS Mode of arrival: EMS - History of Present Illness Initial comments: 64-year-old male with past medical history of coronary artery disease, hypertension, hyperlipidemia who presents to the emergency department for a near syncopal episode. Patient was at his [facility] office with his . She states that he grabbed onto her arm and then sat in the chair. She reports that his eyes rolled back in his head. Patient was unresponsive for few minutes. When EMS arrived he was responsive again. He was ANO x 4. No seizure-like activity. Patient did not injure himself as he remained in the chair at the time. He denies feeling chest pain, shortness of breath, nausea or vomiting. Did admit that he started to feel little fuzzy before the incident happened and this is when he grabbed onto his . He has had previous syncopal episodes before which states was due to carotid disease which she did have fixed. He does follow routinely for echo and carotid imaging. Patient admits that he did not eat this morning and he felt as if the office was overwhelmingly hot. He denies any additional symptoms to abdominal pain. No other alleviating, precipitating or modifying factors - Related Data Home Medications Medication Instructions Recorded Confirmed ARIPiprazole [Abilify] 5 mg PO DAILY 07/07/15 03/19/23 HYDROcodone/APAP 7.5-325MG [Purdon 1 each PO Q6HR PRN 07/07/15 03/19/23 7.5-325] ALPRAZolam [Xanax] 0.25 mg PO HS PRN 10/02/15 03/19/23 Cyclobenzaprine [Flexeril] 10 mg PO BID 10/02/15 03/19/23 Previous Rx's Medication Instructions Recorded HYDROmorphone [Dilaudid] 2 mg PO Q8H PRN #30 tab 10/02/15 predniSONE 50 mg PO DAILY #5 tab 07/29/21 Albuterol Inhaler [Ventolin Hfa 1 puff INHALATION RT-QID PRN #8 gm 10/01/21 Inhaler] dexAMETHasone [Decadron] 6 mg PO DAILY 5 Days #5 tablet 10/01/21 Clopidogrel [Plavix] 75 mg PO DAILY #30 tablet 04/28/23 Allergies Allergy/AdvReac Type Severity Reaction Status Date / Time No Known Allergies Allergy Verified 01/24/25 09:54 Review of Systems ROS Statement: Those systems with pertinent positive or pertinent negative responses have been documented in the HPI. ROS Other: All systems not noted in ROS Statement are negative. Past Medical History Past Medical History: Coronary Artery Disease (CAD), Hyperlipidemia, Hypertens ion, Osteoarthritis (OA) Additional Past Medical History / Comment(s): CAD in left corotid atrery. Chronic back pain, herniated/bulging discs. History of Any Multi-Drug Resistant Organisms: None Reported Past Surgical History: Appendectomy Past Psychological History: No Psychological Hx Reported Smoking Status: Never smoker Past Alcohol Use History: Occasional Past Drug Use History: None Reported General Exam General appearance: alert, in no apparent distress Head exam: Present: atraumatic, normocephalic, normal inspection Eye exam: Present: normal appearance, PERRL, EOMI. Absent: scleral icterus, conjunctival injection, periorbital swelling ENT exam: Present: normal exam, mucous membranes moist Neck exam: Present: normal inspection. Absent: tenderness, meningismus, lympha denopathy Respiratory exam: Present: normal lung sounds bilaterally. Absent: respiratory distress, wheezes, rales, rhonchi, stridor Cardiovascular Exam: Present: regular rate, normal rhythm, normal heart sounds. Absent: systolic murmur, diastolic murmur, rubs, gallop, clicks GI/Abdominal exam: Present: soft, normal bowel sounds. Absent: distended, tenderness, guarding, rebound, rigid Extremities exam: Present: normal inspection, full ROM, normal capillary refill. Absent: tenderness, pedal edema, joint swelling, calf tenderness Back exam: Present: normal inspection Neurological exam: Present: alert, oriented X3, CN II-XII intact Psychiatric exam: Present: normal affect, normal mood Skin exam: Present: warm, dry, intact, normal color. Absent: rash Course Vital Signs 01/24/25 01/24/25 01/24/25 09:46 11:17 12:28 Temperature 97.6 F 97.7 F 97.8 F Pulse Rate 50 L 52 L 54 L Respiratory 16 16 18 Rate Blood Pressure 154/74 117/71 151/73 O2 Sat by Pulse 100 99 98 Oximetry Medical Decision Making - Medical Decision Making Was pt. sent in by a medical professional or institution (SOULEYMANE aCntor, STAFF ANESTHESIOLOGIST, urgent care, hospital, or usp...) When possible be specific @ -No Did you speak to anyone other than the patient for history (EMS, parent, family, police, friend...)? What history was obtained from this source @ -Spoke with and EMS for history Did you review nursing and triage notes (agree or disagree)? Why? @ -I reviewed and agree with nursing and triage notes Were old charts reviewed (outside hosp., previous admission, EMS record, old EKG, old radiological studies, urgent care reports/EKG's, usp records)? Report findings @ -No old charts were reviewed Differential Diagnosis (chest pain, altered mental status, abdominal pain women, abdominal pain men, vaginal bleeding, weakness, fever, dyspnea, syncope, headache, dizziness, GI bleed, back pain, seizure, CVA, palpatations, mental health, musculoskeletal)? @ -Differential Syncope: Valvular disease, hypertrophic cardiomyopathy, pulmonary embolism, tamponade, tachycardia, bradycardia, [place], hypovolemia, hemorrhage, dissection, anemia, intracranial hemorrhage, seizure, hypoglycemia, carbon monoxide poisoning, this is not meant to be an all-inclusive list. EKG interpreted by me (3pts min.). @ -Yes and demonstrates sinus bradycardia with rate of 51. Parable 198. QRS 91. QTc of 414. No acute ST segment elevations or depressions X-rays interpreted by me (1pt min.). @ -None done CT interpreted by me (1pt min.). @ -None done U/S interpreted by me (1pt. min.). @ -None done What testing was considered but not performed or refused? (CT, X-rays, U/S, labs)? Why? @ -None What meds were considered but not given or refused? Why? @ -None Did you discuss the management of the patient with other professionals (professionals i.e. SOULEYMANE Cantor, STAFF ANESTHESIOLOGIST, lab, RT, psych nurse, manager social responsibility, process developer, teacher, correctional security officer, disease case manager)? Give summary @ -No Was smoking cessation discussed for >3mins.? @ -No Was critical care preformed (if so, how long)? @ -No Were there social determinants of health that impacted care today? How? (Homelessness, low income, unemployed, alcoholism, drug addiction, transportation, low edu. Level, literacy, decrease access to med. care, fci, rehab)? @ -No Was there de-escalation of care discussed even if they declined (Discuss DNR or withdrawal of care, Hospice)? DNR status @ -No What co-morbidities impacted this encounter? (DM, HTN, Smoking, COPD, CAD, Cancer, CVA, ARF, Chemo, Hep., AIDS, mental health diagnosis, sleep apnea, morbid obesity)? @ -Coronary artery disease, carotid stenosis Was patient admitted / discharged? Hospital course, mention meds given and route, prescriptions, significant lab abnormalities, going to OR and other pertinent info. @ -Upon arrival patient seen and evaluated in hallway 20. Thorough history and physical exam was performed. Patient feels back to his baseline at this time. He was agreeable to a minimal workup. Patient is up-to-date on his carotid imaging as well as his echo. IV had been established by EMS and he was given IV fluids. Laboratory studies are conducted and reviewed. The results are discussed with patient. He does feel comfortable going home at this time and will follow-up with his vascular surgeon. Return for any new or worsening symptoms. Patient agreeable plan was discharged stable condition Undiagnosed new problem with uncertain prognosis? @ -No Drug Therapy requiring intensive monitoring for toxicity (Heparin, Nitro, Insulin, Cardizem)? @ -No Were any procedures done? @ -No Diagnosis/symptom? @ -Acute near syncope Acute, or Chronic, or Acute on Chronic? @ -Acute Uncomplicated (without systemic symptoms) or Complicated (systemic symptoms)? @ -Complicated Side effects of treatment? @ -No Exacerbation, Progression, or Severe Exacerbation? @ -No Poses a threat to life or bodily function? How? (Chest pain, [place], [place], pneumonia, PE, COPD, DKA, ARF, appy, cholecystitis, CVA, Diverticulitis, Homicidal, Suicidal, threat to staff... and all critical care pts) @ -No - Lab Data Result diagrams: 01/24/25 11:12 01/24/25 11:12 Lab Results 01/24/25 01/24/25 01/24/25 Range/Units 11:12 11:12 11:12 WBC 5.8 (3.8-10.6) k/uL RBC 4.21 L (4.30-5.90) m/uL Hgb 12.5 L (13.0-17.5) gm/dL Hct 39.6 (39.0-53.0) % MCV 94.0 (80.0-100.0) fL MCH 29.8 (25.0-35.0) pg MCHC 31.7 (31.0-37.0) g/dL RDW 13.1 (11.5-15.5) % Plt Count 171 (150-450) k/uL MPV 6.8 Neutrophils % 64 % Lymphocytes % 22 % Monocytes % 8 % Eosinophils % 3 % Basophils % 0 % Neutrophils # 3.7 (1.3-7.7) k/uL Lymphocytes # 1.3 (1.0-4.8) k/uL Monocytes # 0.5 (0-1.0) k/uL Eosinophils # 0.2 (0-0.7) k/uL Basophils # 0.0 (0-0.2) k/uL Sodium 136 L (137-145) mmol/L Potassium 4.0 (3.5-5.1) mmol/L Chloride 107 (98-107) mmol/L Carbon Dioxide 26 (22-30) mmol/L Anion Gap 3 mmol/L BUN 20 (9-20) mg/dL Creatinine 0.75 (0.66-1.25) mg/dL Est GFR (CKD-EPI)AfAm >90 (>60 ml/min/1.73 sqM) Est GFR (CKD-EPI)NonAf >90 (>60 ml/min/1.73 sqM) Glucose 87 (74-99) mg/dL Calcium 8.4 (8.4-10.2) mg/dL Total Bilirubin 1.1 (0.2-1.3) mg/dL AST 23 (17-59) U/L ALT 22 (4-49) U/L Alkaline Phosphatase 52 (38-126) U/L Troponin I <0.012 (0.000-0.034) ng/mL Total Protein 5.4 L (6.3-8.2) g/dL Albumin 3.4 L (3.5-5.0) g/dL Disposition Clinical Impression: Syncope Disposition: HOME SELF-CARE Condition: Stable Instructions (If sedation given, give patient instructions): Syncope (ED) Additional Instructions: Please follow-up with Dr. Mckeon for further evaluation of your symptoms. Return for any new or worsening symptoms Is patient prescribed a controlled substance at d/c from ED?: No Referrals: Josiah Mckeon MD [Primary Care Provider] - 1-2 days Time of Disposition: 12:15
[2025-01-24 12:29] VITALS: BP 151/73; PULSE 54; RESP 18; TEMP 97.8
== END 2025-01-24 12:28 | disposition home or self-care (01) ==
LOC: EC 09:40
DX: R42 Dizziness and giddiness (principal); I11.9 Hypertensive heart disease without heart failure; I25.10 Atherosclerotic heart disease of native coronary artery without angina pectoris; I65.29 Occlusion and stenosis of unspecified carotid artery
CPT/HCPCS: 36415; 80053; 84484; 85025; 93005; 99284

== ENCOUNTER → 2025-02-10 | Outpatient (CLI) | payer OTHER ==
--- NOTE | 2025-03-14 22:13 | EM ---
EVENT MONITOR The patient was monitored between the 10 of February and the February. CLINICAL INFORMATION: The baseline rhythm is a sinus mechanism. The average rate, 63 beats per minute, minimum of 42, maximum 119 beats per minute. Supraventricular ectopic activity burden was noted with single PVCs at 1%. Supraventricular ectopic activity burden was 1% with single PACs. Symptoms of shortness of breath, chest pain correlated with sinus mechanism. No pauses were noted. MMODL / IJN: [id number] /
== END | disposition home or self-care (01) ==
LOC: RADECHMAIN 13:17
PROVIDERS: ATTEND Internal Medicine
DX: I49.3 Ventricular premature depolarization (principal)
CPT/HCPCS: 93270

== ENCOUNTER → 2025-02-24 | Outpatient (CLI) | payer OTHER ==
--- NOTE | 2025-02-27 10:16 | CA ---
Transthoracic Echo Report Name: Rhys Manning Age: 64 Gender: M : 1960 Exam Date: 02/24/2025 13:24 Exam Location: [facility] Ht (in): 66 Wt (lb): 145 Ordering Physician: Josiah Mckeon MD Attending/Referring Phys: Probation And Parole Officer Mee Lange RDCS Procedure CPT: Indications: R07.9 CHEST PAIN Cardiac Hx: Technical Quality: Good Contrast 1: Total Dose (mL): Contrast 2: Total Dose (mL): MEASUREMENTS (Male / Female) Normal Values 2D ECHO LV Diastolic Diameter PLAX 4.7 cm 4.2 - 5.9 / 3.9 - 5.3 cm LV Systolic Diameter PLAX 3.0 cm IVS Diastolic Thickness 1.0 cm 0.6 - 1.0 / 0.6 - 0.9 cm LVPW Diastolic Thickness 0.9 cm 0.6 - 1.0 / 0.6 - 0.9 cm LV Relative Wall Thickness 0.4 LVOT Diameter 1.9 cm LV Diastolic Volume MOD BP 99.0 cm??? 67 - 155 / 56 - 104 cm??? LV Systolic Volume MOD BP 33.1 cm??? 22 - 58 / 19 - 49 cm??? LV Ejection Fraction MOD BP 66.5 % >= 55 % LV Cardiac Index MOD BP 2288.3 cm???/min???m??? LV Diastolic Volume MOD 4C 93.4 cm??? LV Systolic Volume MOD 4C 37.6 cm??? LV Ejection Fraction MOD 4C 59.7 % LV Cardiac Index MOD 4C 1936.9 cm???/min???m??? LV Diastolic Length 4C 7.9 cm LV Systolic Length 4C 6.3 cm LV Diastolic Volume MOD 2C 97.2 cm??? LV Systolic Volume MOD 2C 25.2 cm??? LV Ejection Fraction MOD 2C 74.1 % LV Cardiac Index MOD 2C 2503.2 cm???/min???m??? LV Diastolic Length 2C 8.6 cm LV Systolic Length 2C 5.3 cm LA Volume 32.6 cm??? 18 - 58 / 22 - 52 cm??? LA Volume Index 18.6 cm???/m??? 16 - 28 cm???/m??? Ascending Aorta Diameter 3.5 cm DOPPLER AV Peak Velocity 129.9 cm/s AV Peak Gradient 6.7 mmHg AV Mean Velocity 101.1 cm/s AV Mean Gradient 4.3 mmHg AV Velocity Time Integral 29.7 cm LVOT Peak Velocity 111.7 cm/s LVOT Peak Gradient 5.0 mmHg LVOT Velocity Time Integral 25.0 cm LVOT Stroke Volume 73.9 cm??? LVOT Stroke Volume Index 42.4 ml/m??? LVOT Cardiac Index 2567.8 cm???/min???m??? AV Area Cont Eq vti 2.5 cm??? AV Area Cont Eq pk 2.5 cm??? MV Area PHT 4.5 cm??? Mitral E Point Velocity 72.5 cm/s Mitral A Point Velocity 52.2 cm/s Mitral E to A Ratio 1.4 MV Deceleration Time 168.8 ms TR Peak Velocity 220.7 cm/s TR Peak Gradient 19.5 mmHg Right Atrial Pressure 5.0 mmHg Pulmonary Artery Systolic Pressu 24.5 mmHg Right Ventricular Systolic Press 24.5 mmHg PV Peak Velocity 99.9 cm/s PV Peak Gradient 4.0 mmHg FINDINGS Left Ventricle Left ventricular ejection fraction is estimated at 55-60 %. Left ventricular cavity size normal. Left ventricular wall thickness normal. No obvious regional wall motion abnormalities. Right Ventricle Normal right ventricular size and function. Right ventricular systolic pressure within normal limits. Right Atrium Normal right atrial size. Left Atrium Normal left atrial size. Mitral Valve Structurally normal mitral valve. No mitral stenosis, regurgitation or prolapse. Aortic Valve Trileaflet aortic valve. No aortic valve stenosis or regurgitation. Tricuspid Valve Structurally normal tricuspid valve. No tricuspid stenosis. Trace tricuspid regurgitation. Pulmonic Valve Pulmonic valve not well visualized. No pulmonic stenosis. No pulmonic regurgitation. Pericardium No pericardial effusion. Aorta Normal size aortic root and proximal ascending aorta. CONCLUSIONS Indication: Chest pain Normal LV size and function Normal RV size and function No significant structural valvular abnormalities No pericardial effusion Prominent posterior pericardial stripe Previewed by: Dr. Jass Trent MD (Electronically Signed) Final Date: 27 February 2025 10:15
== END | disposition home or self-care (01) ==
LOC: RADECHMAIN 13:03
PROVIDERS: ATTEND Internal Medicine
DX: R07.9 Chest pain, unspecified (principal)
CPT/HCPCS: 93306